=== PATIENT | female | born 1935 | race Caucasian/White ===

== ENCOUNTER 2023-04-13 15:31 | Outpatient (RCR) | payer MEDICARE, SELFPAY | END 2023-04-24 23:59 | LOC: NS 15:31 | PROVIDERS: Visit Provider Student in an Organized Health Care Education/Training Program | DX: Z71.3 Dietary counseling and surveillance (principal); C4A.9 Merkel cell carcinoma, unspecified; E46 Unspecified protein-calorie malnutrition ==

== ENCOUNTER 2023-05-19 14:51 | Outpatient (RCR) | payer MEDICARE, SELFPAY | END 2023-05-25 23:59 | LOC: NS 14:51 | PROVIDERS: Visit Provider Student in an Organized Health Care Education/Training Program | DX: Z71.3 Dietary counseling and surveillance (principal) ==

== ENCOUNTER 2023-06-09 09:30 | Outpatient (RCR) | payer MEDICARE, SELFPAY ==
--- NOTE | 2023-02-15 16:09 | HP.SP.EVAL ---
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 The patient is undergoing radiation treatment consisting of 5940 cGy delivered to the left resection bed and left neck with a simultaneous boost to the left preauricular/parotid tumor bed consisting of 6600 cGy all in 33 fractions, which began 01/24/2023 and is planned to end 03/09/2023. She completes salt water/baking soda rinse 4X daily and drinks green tea 2X daily. No PEG tube. Also noteworthy in her PMH is L vocal cord paralysis, which was identified by ENT, Dr. Jonna Carrillo, at [facility]. Her surgeon, Dr. Benito, has recommended she follow through with swallowing exercises and stretches to prevent trismus, but she admits to poor follow through. 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 Facial nerve intact following operation. Per patient, eating is terrible because chewing is difficult. She cubes foods and chews on the right. Patient denies coughing with food or drink. She feels like she has phlegm that she can't get out, so she swallows it. Odynophagia if not chewing enough. She currently has dysgeusia and hypogeusia. No xerostomia. Patient is eating 3 meals per day with additional snacks. She does feel she is consuming less amount than she typically would during those meals. 2 Ferny daily. 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 Lives with , Vladimir, who was present for the evaluation. Smoking Status: Never smoker Pain Is pain an issue with your current prescribed condition?: Yes Personal Preferred language: [place] Patient Allergies Allergies Allergies: Allergies amoxicillin Allergy (Verified 02/09/23 13:15) PT UNSURE OF REACTION Subjective Dysphagia Symptoms Reported Symptoms/Problems with: Difficulty Swallowing Solids and Pain on Swallowing Other: Pain swallowing if she doesn't thoroughly chew foods Current Diet Solids Current Diet: Soft Current Diet Liquids Current Liquids: Thin Objective Dysphagia Administered by Administered by: Self Thin Liquids Administred via: Cup and Straw Oral Transit: WNL Bolus clearance: fully cleared Cough: none observed/unable to assess Pharyngeal phase: laryngeal elevation mildly restricted slow initiation Comments: No overt s/s of aspiration via bottle or straw. No sensation of retention. Pureed Administered via: Spoon Oral Preparation: WNL Oral Transit: WNL Bolus clearance: significant clearance/minimal residue Cough: throat clear Pharyngeal phase: immediate laryngeal elevation Comments: Timely swallow, throat clear after 1 bite, minimal oral residues. Regular Oral Preparation: WNL Oral Transit: WNL Bolus clearance: significant clearance/minimal residue Cough: none observed/unable to assess Pharyngeal phase: immediate laryngeal elevation Patient Report: Patient states she uses finger sweep when experiencing pocketing Comments: No overt s/s of aspiration, patient independently uses R sided bolus placement, no sensation of retention. Swallowing Impairment Contributing Factors to Swallowing Impairment: Reduced Oral Strength/Coordination/Sensation, Mastication Inefficiency and Delayed Swallow Initiation Impact Impact on Safety & Functioning: Risk for Aspiration and Risk for Inadequate Nutrition/Hydration Recommendations Modified Barium Swallow/Cookie Swallow Recommended: Yes Swallowing Treatment: Yes Diet Texture Recommendations Solids: Easy to Chew (Level 7) Liquids: Thin (Level 0) Other: As the patient is already 3.5 weeks into radiation treatment, will plan for MBSS 3 months s/p radiation unless concerns for aspiration or poor diet tolerance. 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 VII Facial Nerve VII Facial Nerve Result: Impaired Comment: Impaired labial ROM and strength, decreased retraction and pucker w/ L orbicularis donis especially on lower L portion of lip. Impaired taste; however, likely due to radiation treatment. X Vagus Nerve X Vagus Nerve Result: Impaired Comment:: Very hoarse vocal quality w/ known L sided vocal fold paralysis. 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 She is also currently undergoing radiation treatment, which will increase risk for worsening dysphagia. Speech therapy POC to include further education re: trismus exercise program, oropharyngeal exercise program, diet texture recommendations, aspiration precautions, and compensatory strategies to decrease risk for aspiration. Additionally, will provide ongoing assessment of diet tolerance during and post radiation treatment. Without skilled ST services, the patient is at increased risk for aspiration, dehydration, weight loss, and malnutrition. Recommendations MBS: Yes Treatment Warranted: Yes Treatment Warranted: Dysphagia Comment: MBSS to be planned ~3 months s/p radiation treatment unless warranted sooner if poor diet tolerance. At this time, the patient is not interested in voice evaluation and therapy. Progress Prognosis: Good Frequency Frequency: Every Other Week Additional (Frequency): Frequency to change during POC based on patient's changing needs for ST during and after radiation treatment. Duration: 12 Months Goals that are Established Determination:: Goals will be added/modified as deemed necessary and appropriate. Therapy will be discontinued when results of re-evaluation indicate therapy is no longer needed or lack of progress has been documented. Goal #1-5 Goal #1: The patient will consume least restrictive diet textures without overt s/s of aspiration with minimal verbal cues for use of compensatory strategies to decrease risk for aspiration. Goal #2: The patient will complete an oropharyngeal exercise program post radiation treatment independently to improve and maintain strength, ROM, and coordination of swallowing mechanism (X10 repetitions, 3-5X daily). [Will hold this goal until after completion of radiation treatment] Goal #3: (LTG) The patient will achieve jaw opening 35-55mm to promote improved mastication and speech production abilities (Initial evaluation - 33mm). Goal #4: (STG) The patient will complete jaw strength, coordination, and ROM exercises during and post radiation treatment independently to improve mastication and speech production abilities (X10 repetitions, 3-5X daily). Goal #5: (LTG) The patient will participate in routine (minimum annually) FEES/MBSS study to objectively assess swallow function and provide recommendations for safest, least restrictive diet and compensatory strategies to reduce risk for aspiration. Education Patient has Indicated that the Following The Patient has indicated that they have no educational or learning abilities that may effect their care.: Yes Patient Instruction Patient Education: Diagnosis, Treatment Plan, Goals, Safety Precautions, Diet Level and Home Exercise Program Other Education: Education provided regarding the potential impacts of radiation treatment on swallow function during and post treatment, including effects such as mucositis, dysgeusia, radiation fibrosis, lymphedema, and disuse atrophy, which may result in restricted range of motion and weakness of swallowing mechanism. Discussed impaired swallowing and increased risk for aspiration, aspiration related illnesses, weight loss, dehydration, and malnutrition. Discussed importance for speech therapy to monitor and address dysphagia during and post radiation treatment to maintain optimal swallow function through continued education and prophylactic exercise program. Provided the patient a handout and demonstration of jaw ROM exercises. As the patient is already presenting with decreased oral intake, will hold oropharyngeal exercise program until after treatment. 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 The patient provided return demonstration with all jaw ROM exercises with minimal verbal cues and demonstration. The patient would benefit from continued training to monitor proper execution of exercises and encourage strict adherence to exercise program. Person Taught: Patient and Family Teaching Method: Discussion, Demonstration, Handout and Teach back Response to teaching: Return demonstration, Verbalize understanding and Reinforcement needed
--- NOTE | 2023-06-09 10:12 | ST.MBS ---
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 From 01/24/2023 ? 03/09/2023: received adjuvant radiation therapy consisting of 5940 cGy delivered to the left resection bed and left neck with a simultaneous boost to the left preauricular/parotid tumor bed. Also noteworthy in her PMH is L vocal cord paralysis, which was identified by ENT, Dr. Jonna Carrillo, at [facility]. The patient followed with OP ST during and following completion of radiation treatment to manage oropharyngeal dysphagia secondary to her cancer and radiation treatment. Currently, she reports mild xerostomia, taste WNL, and no odynophagia. She denies current difficulty swallowing food or drink, but does feel like she constantly has phlegm that she cannot clear. She has been referred for MBSS to monitor risk for worsening dysphagia s/p radiation treatment. Current Diet Ordered: Regular / Thin Dentition: WNL, Natural Teeth, Partials and Missing Teeth Mental Status: WNL Respiratory Status: Oxygenating on Room Air Penetration-Aspiration Scale Penetration-Aspiration Scale: OBJECTIVE ASSESSMENT OF SWALLOW FUNCTION (QUANTITATIVE ? PER TRIAL): PENETRATION / ASPIRATION SCALE (GARCIA): 1 = does not enter airway 2 = enters airway/above vocal folds/ejected 3 = enters airway/above vocal folds/not ejected 4 = enters airway/contacts vocal folds/ejected 5 = enters airway/contacts vocal folds/not ejected 6 = enters airway/below vocal folds/ejected 7 = enters airway/below vocal folds/not ejected despite effort 8 = enters airway/below vocal folds/no effort VIDEOFLOROSCOPIC SCALE SCORE (GARCIA): Grade I = aspiration of material that has penetrated into the laryngeal vestibule, intact cough reflex Grade II = aspiration < 10 % of the bolus, intact cough reflex Grade III = aspiration of < 10 % of the bolus, reduced cough reflex or aspiration of > 10 % of the bolus, intact cough reflex Grade IV = aspiration of > 10 % of the bolus, reduced cough reflex Penetration-Aspiration Scale Score Thin Liquid via teaspoon: Result: 1= does not enter airway Thin Liquid via teaspoon Trial 2: Result: 1= does not enter airway Thin Liquid via small single sip: cup: Result: 2= enter airway/above vocal folds/ejected Thin Liquid via sequential sips: cup: Result: 1= does not enter airway Corder Thick Liquid via small single sip: cup: Result: 1= does not enter airway Pudding via teaspoon: Result: 1= does not enter airway Comment: esophageal screen 1/2 cookie - esophageal screen: Result: 1= does not enter airway Thin Liquid via sequential sips:straw: Result: 2= enter airway/above vocal folds/ejected Oral Phase Labial Seal: No Labial Escape Tongue Control During Bolus Hold: Escape to lateral buccal cavity/floor of mouth Bolus Preparation/Mastication: Slow prolonged chewing/mashing with complete recollection (Small pieces of cookie appeared to be unchewed) Bolus Transport/Lingual Motion: Brisk tongue motion Oral Residue: Trace residue lining oral structures Pharyngeal Phase Initiation of Pharyngeal Swallow: Bolus head at posterior laryngeal surgace of epiglottis Soft Palate Elevation: Trace column of contrast/air between soft palate and pharyngeal wall Laryngeal Elevation: Comp. Superior move thyroid cart w/comp. apprx arytenoid cart-epig pet Anterior Hyoid Excursion: Complete anterior movement Epiglottic Movement: Complete inversion Laryngeal Vestibule Closure at Height of Swallow: Incomplete; narrow column of air/contrast in laryngeal vestibule Pharyngeal Stripping Wave: Present - complete Pharyngoesophageal Segment Opening: Complete distension and complete duration; no obstruction of flow Tongue Base Retraction: Trace column of contrast between tongue base & post. pharyngeal wall Pharyngeal Residue: Complete pharyngeal clearance Esophageal Phase Esophageal Clearance: Complete clearance Diagnosis/Impression Diagnosis: Mild Oral Dysphagia R13.11 Impression: The oral phase is primarily marked by... -Decreased bolus control with spillage of bolus into FOM likely due to left-sided oral weakness. Bolus head at the posterior laryngeal surface of the epiglottis prior to swallow onset observed especially with thin liquids. -Slowed and prolonged mastication with small pieces of cookie appearing un-chewed. -Mild oral residue after the swallow. The pharyngeal phase is grossly WNL. Trace laryngeal penetration with full ejection and no aspiration during the study. Recommendations Diet: Regular Textures and Thin Liquids Compensatory Strategies: Small Bites (Chew thoroughly), Small Sips, Slow Rate, Alternate bites/solids and sips/liquids and Sitting upright Recommend Repeat Modified Barium Swallow: Yes Comment: Plan for repeat MBSS in 6-12 months to continue to monitor swallow function s/p radiation, as pt is at increased risk for worsening dysphagia and aspiration risk related to roasterman effects of radiation. Need for Skilled Speech Therapy Services: Yes Comment: Will recommend one, follow-up dysphagia treatment session in order to... -Train the patient in use of strategies to decrease risk for aspiration. -Train the patient trismus and oropharyngeal exercise program to improve bolus control and tongue base retraction (lingual retraction, Jovita, effortful). Education Completed: 1. Described result of evaluation. and 2. Pt understands evaluation & agrees with goals and treatment plan. Status Active ST Patient: Active Contact Information [facility] Speech Therapy:: Danitza Whitman M.A. [facility]? Speech-Language Pathologist?? [facility] [address]?? [place] [address]?? [email or web address]?? [phone]
--- NOTE | 2023-06-28 16:41 | HP.SP.DC_ITS ---
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 From 01/24/2023 ? 03/09/2023 she received radiation therapy. The patient was evaluated for dysphagia at bedside 02/15/2023 and followed with OP ST for 5 sessions during and following completion of radiation treatment to manage oropharyngeal dysphagia secondary to her cancer and radiation treatment. MBSS was completed 06/09/2023 revealing mild oral dysphagia and recommending Regular Textures / Thin liquids with use of compensatory strategies with plan for 1 additional follow-up dysphagia therapy session. Dysphagia therapy follow- up was completed 06/09/23 to train the patient in use of strategies to decrease risk for aspiration and to train the patient in trismus and oropharyngeal exercise program to improve bolus control and tongue base retraction (lingual retraction, Jovita, effortful). She requires no additional dysphagia therapy at this time; however, she is recommended for annual MBSS to monitor risk for worsening dysphagia s/p radiation treatment.
== END 2023-06-09 19:00 | disposition home or self-care (01) ==
LOC: SP 09:30
PROVIDERS: Referring Provider Student in an Organized Health Care Education/Training Program; Visit Provider Student in an Organized Health Care Education/Training Program
DX: C4A.30 Merkel cell carcinoma of unspecified part of face (principal)
CPT/HCPCS: 92526; 92610; 92611; 97803

== ENCOUNTER → 2023-06-09 | Outpatient (CLI) | payer MEDICARE, SELFPAY | END | disposition home or self-care (01) | PROVIDERS: PCP Family Medicine; Referring Provider Student in an Organized Health Care Education/Training Program; Visit Provider Student in an Organized Health Care Education/Training Program | DX: C4A.30 Merkel cell carcinoma of unspecified part of face (principal) | CPT/HCPCS: 74230; 97803 ==

== ENCOUNTER → 2024-06-29 | Outpatient (CLI) | payer MEDICARE, SELFPAY ==
--- NOTE | 2024-06-29 13:28 | ST.MBS ---
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 From 01/24/2023 ? 03/09/2023: received adjuvant radiation therapy consisting of 5940 cGy delivered to the left resection bed and left neck with a simultaneous boost to the left preauricular/parotid tumor bed. Also noteworthy in her PMH is L vocal cord paralysis, which was identified by ENT, Dr. Jonna Carrillo, at [facility]. Prior MBSS 06/09/23 revealed mild oral phase dysphagia /w recommendation for regular [id number]/thin liquids w/ small bites/chew thoroughly, small sips, slow rate, alternate bites/sips & seated upright for intake. A repeat MBSS was recommended in 6-12 months d/t terminologist risks of swallow dysfunction/aspriatoin s/p radiation therapy. Current Diet Ordered: Regular/Thin Dentition: Natural Teeth and Missing Teeth Mental Status: WNL Respiratory Status: Oxygenating on Room Air Penetration-Aspiration Scale Penetration-Aspiration Scale: OBJECTIVE ASSESSMENT OF SWALLOW FUNCTION (QUANTITATIVE ? PER TRIAL): PENETRATION / ASPIRATION SCALE (GARCIA): 1 = does not enter airway 2 = enters airway/above vocal folds/ejected 3 = enters airway/above vocal folds/not ejected 4 = enters airway/contacts vocal folds/ejected 5 = enters airway/contacts vocal folds/not ejected 6 = enters airway/below vocal folds/ejected 7 = enters airway/below vocal folds/not ejected despite effort 8 = enters airway/below vocal folds/no effort VIDEOFLOROSCOPIC SCALE SCORE (GARCIA): Grade I = aspiration of material that has penetrated into the laryngeal vestibule, intact cough reflex Grade II = aspiration < 10 % of the bolus, intact cough reflex Grade III = aspiration of < 10 % of the bolus, reduced cough reflex or aspiration of > 10 % of the bolus, intact cough reflex Grade IV = aspiration of > 10 % of the bolus, reduced cough reflex Oral Phase Labial Seal: Interlabial escape, no progression to anterior lip Tongue Control During Bolus Hold: Cohesive bolus between tongue to palatal seal Bolus Preparation/Mastication: Slow prolonged chewing/mashing with complete recollection Bolus Transport/Lingual Motion: Brisk tongue motion Oral Residue: Residue collection on oral structures Pharyngeal Phase Initiation of Pharyngeal Swallow: Bolus head in valleculae Soft Palate Elevation: Trace column of contrast/air between soft palate and pharyngeal wall Laryngeal Elevation: Comp. Superior move thyroid cart w/comp. apprx arytenoid cart-epig pet Anterior Hyoid Excursion: Complete anterior movement Epiglottic Movement: Complete inversion Laryngeal Vestibule Closure at Height of Swallow: Complete; no air/contrast in laryngeal vestibule Pharyngeal Stripping Wave: Present - complete Pharyngoesophageal Segment Opening: Complete distension and complete duration; no obstruction of flow Tongue Base Retraction: Trace column of contrast between tongue base & post. pharyngeal wall Pharyngeal Residue: Complete pharyngeal clearance Esophageal Phase Esophageal Clearance: Esophageal retention (minimal, cleared w/ liquid wash) Diagnosis/Impression Diagnosis: Mild Oral Dysphagia R13.11 Impression: The oral phase is marked by: adequate oral bolus containment w/out bolus spillage to the floor of mough or posteriorly into the pharynx slowed/prolonged mastication of solids w/ complete recollection incompelte oral clearance w/ oral residue retention remaining on the posterior lingual surface, independently initiated a second swallow which was effective to clear the residue The pharyngeal phase was grossly WNL w/ no laryngeal vestibule penetration/aspiration The esophageal phase is marked by: mild esophageal bolus retention noted w/ esophageal screen for clearance a liquid was was effective for esophageal clearance Recommendations Diet: Thin Liquids Compensatory Strategies: Small Bites (chew thoroughly), Alternate bites/solids and sips/liquids and Sitting upright Recommend Repeat Modified Barium Swallow: Yes (Plan for repeat MBSS in 12 months to continue to monitor swallow function s/p radiation, as she is at increased risk for worsening dysphagia/aspiration risk related to retirement effects of radiation.) Need for Skilled Speech Therapy Services: No Education Completed: 1. Described result of evaluation. and 2. Pt understands evaluation & agrees with goals and treatment plan. Status Active ST Patient: Active Contact Information [facility] Speech Therapy:: Suyapa Davila M.A. DIRECTOR OF HUMAN RESOURCES Speech-Language Pathologist [facility] [place] [address] [email or web address] [phone]
== END | disposition home or self-care (01) ==
LOC: RAD 12:43
PROVIDERS: PCP Family Medicine; Referring Provider Student in an Organized Health Care Education/Training Program; Visit Provider Student in an Organized Health Care Education/Training Program
DX: C4A.30 Merkel cell carcinoma of unspecified part of face (principal)
CPT/HCPCS: 74230; 92611